=== PATIENT | female | born 1960 | race Caucasian/White ===

== ENCOUNTER 2022-08-29 08:00 | Outpatient (CLI) | payer BC, OTHER ==
[~2022-08-29] VITALS: Ht 154.9 cm; Wt 65.8 kg
== END 2022-08-29 18:00 | disposition home or self-care (01) ==
LOC: SLB 08:00 → EDSTATUS 09-01 07:30
PROVIDERS: ATTEND Internal Medicine Gastroenterology
DX: Z01.818 Encounter for other preprocedural examination (principal); K30 Functional dyspepsia; Z20.822 Contact with and (suspected) exposure to COVID-19
CPT/HCPCS: 36415; U0003